=== PATIENT | female | born 1980 | race Caucasian/White ===

== ENCOUNTER 2016-06-02 15:01 | Inpatient (IN) | payer BC ==
--- NOTE | ~2016-06-02 | DS ---
Discharge Summary [place] [id number] [facility] [place]. [address] NAME: GEOFFREY FARRIS : 84 STATUS : DIS IN PAT#: [id number] AGE: 35 ADM/REG DATE : 06/02/16 MR#: [id number] REPORT SERV DATE: 06/06/16 DICTATED BY: DATE: REPORT STATUS : Draft TRANSCRIBED BY: MODL DATE: 06/05/16 ADMISSION DATE: 06/02/2016 DISCHARGE DATE: 06/05/2016 DISCHARGE DIAGNOSES: 1. Diverticulitis. 2. Leukocytosis. 3. Abdominal pain. 4. Constipation. 5. Focal seizures history. CONSULTATIONS: Rey Mitchell, LUZ ELENA, Gastroenterology. PERTINENT TESTS AND PROCEDURES: 1. CT of the abdomen and pelvis without contrast, 06/02/2016. Impression:. a. Mild diverticulosis of the sigmoid colon. Mid and distal sigmoid colon appeared thickened with surrounding inflammatory stranding and trace adjacent fluid concerning for diverticulitis/colitis. No evidence for abscess or perforation is evident. Recommend colonoscopy after therapy to entirely exclude other etiologies such as superimposed neoplasm. b. Punctate nonobstructing right nephrolith. c. Status post cholecystectomy and hysterectomy. 2. Blood cultures x2 sites obtained on 06/02/2016, preliminary result no growth at two days. CHIEF COMPLAINT UPON ADMISSION: Lower abdominal pain. HOSPITAL COURSE: Please refer to history and physical dated 06/03/[address] Manny Alegria for complete details of the patient's initial presentation upon admission and health history. Please also refer to consultation dated 06/03/2016, provided by Rey Mitchell, nurse-practitioner, with Gastroenterology for details pertaining to evaluation and management of abdominal pain and diverticulitis versus colitis evidence per CT scan. Briefly, the patient is a 35-year-old female, who presented to the emergency department on 06/02/2016 with complaints of lower abdominal pain. Prior to this admission the patient was pending followup appointment with Dr. Sanderson, GI, for evaluation of abdominal pain to include an endoscopy. Upon initial evaluation, a CT scan showed diverticulitis and colitis in the sigmoid colon with a 14,000 white count. The patient was admitted for further evaluation and treatment. Upon admission, the patient was started on Zosyn and responded well to this therapy. Abdominal pain has improved, and white count has normalized. The patient will follow up with GI on an outpatient basis. Discharge Summary [place] [id number] [facility] [place]. [address] NAME: GEOFFREY FARRIS : 82 STATUS : DIS IN PAT#: [id number] AGE: 35 ADM/REG DATE : 06/02/16 MR#: [id number] REPORT SERV DATE: 06/06/16 DICTATED BY: DATE: REPORT STATUS : Draft TRANSCRIBED BY: MODL DATE: 06/05/16 1. Diverticulitis. This was confirmed per CT scan. The patient received four days of Zosyn during this admission and will continue antibiotic therapy to include Augmentin 875/125 mg p.o. q.12 hours x10 days to complete a total 14-day therapy. The patient will follow up with Dr. Sanderson GI, in approximately eight weeks for an EGD/colonoscopy. Since admission, the patient's nausea has been well controlled with Zofran with no reports of vomiting. The patient's diet has been successfully upgraded to soft, and the patient is tolerating without difficulty. 2. Leukocytosis, this was secondary to diverticulitis. Upon admission the patient's white blood count was reported to be 14,000. On the day of discharge, white count had normalized and was reported to be 8700. The patient will continue 10 more days of antibiotics to complete a total 14-day therapy. 3. Abdominal pain. The patient's abdominal pain was primarily located in the lower quadrants, left greater than right. Pain responded well to Percocet as needed. Since being on antibiotic therapy the patient's pain continues to improve daily. Pain has not completely resolved, but had decreased to 3 to 4/10 at rest and 6 to 7/10 with movement. The patient will continue short course of the home pain medication as needed. 4. Constipation. The patient has a history of intermittent constipation. She will continue bowel regimen initiated during this hospitalization to include Metamucil and MiraLAX daily. 5. History of focal seizures, this is secondary to brain surgery to remove cyst. The patient's home medications were continued and the patient had no seizure-like events during this admission. DISCHARGE CONDITION: At the time of discharge, the patient was hemodynamically stable. DISCHARGE DIET: Soft diet to be advanced as tolerated. DISCHARGE MEDICATIONS: 1. Adderall 20 mg tablet p.o. twice daily. 2. Lamictal 200 mg tablet p.o. daily at bedtime. 3. Nexium 40 mg tablet p.o. twice daily. 4. MiraLAX 17 g p.o. daily, hold for diarrhea. 5. Metamucil one packet p.o. daily. 6. Florastor one tablet p.o. twice daily. 7. Trazodone 150 mg tablet p.o. daily at bedtime. 8. Zofran 4 mg tablet p.o. every 4 hours as needed for nausea. 9. Percocet 5/325 mg tablet one tablet p.o. every 6 hours as needed for [id number] pain. Hold for sedation. 10.Augmentin 875/125 mg tablet p.o. every 12 hours x10 days. DISCHARGE INSTRUCTIONS: Follow up with Dr. Sanderson GI, in eight weeks for EGD and colonoscopy. Order was faxed to GI office prior to discharge. The patient and her spouse were educated to return to the emergency department for any acute onset of fever 100.4 degrees Fahrenheit or higher lasting more than one hour, intractable chills, nausea, vomiting, abdominal pain, bright red blood per rectum or any other Discharge Summary [address] [address] NAME: GEOFFREY FARRIS : 84 STATUS : DIS IN PAT#: [id number] AGE: 35 ADM/REG DATE : 06/02/16 MR#: [id number] REPORT SERV DATE: 06/06/16 DICTATED BY: DATE: REPORT STATUS : Draft TRANSCRIBED BY: MONICA DATE: 06/05/16 deviations from the patient's baseline health status at the time of this discharge. PRIMARY HOT SAW OPERATOR: Clarence Sanderson M.D. PRIMARY CARE PHYSICIAN: Jf Xavier M.D. [facility] Jenny Sanchez NP-Autumn / [id number] CC: MD Jf Tanner II, M.D.
--- NOTE | ~2016-06-02 | CN ---
Consultation Report [facility] [address] [place]. [address] NAME: GEOFFREY FARRIS : 84 STATUS : ADM Shelli PAT#: [id number] AGE: 35 ADM/REG DATE : 06/02/16 MR#: [id number] REPORT SERV DATE: 06/03/16 DICTATED BY: TAD HDEZ DATE: 06/03/16 REPORT STATUS : Draft TRANSCRIBED BY: MODL DATE: 06/03/16 GI CONSULTATION DATE OF CONSULTATION: 06/03/2016 REASON FOR CONSULTATION: Evaluation and management of abdominal pain, diverticulitis versus colitis on CT scan. HISTORY OF PRESENT ILLNESS: Ms Farris is a very pleasant 35-year-old female patient known to Dr. Zaire Sanderson in the outpatient setting, who presented to [facility] with a chief complaint of lower abdominal pain. The patient gives history of symptom onset beginning over the last three days. She was seen in our office on 05/28/2016 by nurse practitioner, Thais Owen for GERD and nausea. She was started on a regimen of Carafate. She had called the office yesterday indicating that she had increased lower abdominal pain and lack of bowel movements. She had taken a bottle of magnesium citrate which she states cleaned her out. She did not see any blood. She saw a little bit of mucus at the end of her stooling secondary to continued abdominal discomfort as well as chilling. She came into the hospital for further evaluation. Noncontrasted CT scan was obtained showing mild sigmoid colon, diverticulosis, as well as mid to distal sigmoid colon thickening with surrounding inflammatory stranding and trace adjacent fluid consistent with diverticulitis versus colitis. No abscess or perforation was seen. She had an elevated white blood cell count on admission of 14.9, temperature max here has been 99.1. Today, she states she is really not feeling much better. She had been started on Zosyn. No followup labs have been obtained yet. She has not had any further bowel movements. She has had not had any nausea or vomiting. She presently is tolerating a full liquid diet. She was to have an EGD with Dr. Sanderson on 06/12/2016; however, we will plan on cancelling that per her request as she will need a followup colonoscopy in roughly six to eight weeks, and do both procedures at the same time. I did discuss with her presently, we will continue her IV antibiotics, advance her diet as tolerated, and recommend the outpatient followup colonoscopy. She is agreeable. PAST MEDICAL HISTORY: Positive for GERD, brain cyst status post surgical removal. PAST SURGICAL HISTORY: Include tonsils, adenoidectomy, left temporal lobe cyst removal, cholecystectomy, and partial hysterectomy. ALLERGIES: DEMEROL, FLAGYL, PERTUSSIS VACCINES, AND HYDROCODONE. MEDICATIONS: Adderall, Nexium, Lamictal, and trazodone. SOCIAL HISTORY: Denies alcohol, tobacco, or illicits. FAMILY HISTORY: Positive for diverticulitis in her father, who has had surgical resection. Consultation Report [facility] [address] [place]. [address] NAME: GEOFFREY FARRIS : 84 STATUS : ADM Shelli PAT#: [id number] AGE: 35 ADM/REG DATE : 06/02/16 MR#: [id number] REPORT SERV DATE: 06/03/16 DICTATED BY: TAD HDEZ DATE: 06/03/16 REPORT STATUS : Draft TRANSCRIBED BY: MONICA DATE: 06/03/16 REVIEW OF SYSTEMS: A 10-point review of systems was obtained, pertinent positives are addressed in the history of present illness. PHYSICAL EXAMINATION: VITAL SIGNS: Temperature 98.4, pulse 87, respirations 16, and blood pressure 107/65. NEUROLOGIC: Reveals an alert, obese female, resting in bed. No focal deficits. GENERAL: Cooperative, in no apparent distress. Awake, alert and oriented x3. HEAD, EARS, EYES, NOSE, AND THROAT: Anicteric. Pupils are equal, round, and reactive to light and accommodation. Normocephalic and atraumatic. NECK: No JVD. No palpable nodes. LUNGS: Clear anteriorly. Diminished bilaterally in the bases. Normal respiratory effort exhibited. Equal expansion. CARDIOVASCULAR SYSTEM: Regular rate and rhythm. ABDOMEN: Soft, obese, tender to palpation to the lower abdomen. No rebound, guarding, or organomegaly appreciated on exam. Hypoactive bowel sounds. EXTREMITIES: No edema. Normal distal pulses. SKIN: Warm, dry, and intact. PERTINENT LABORATORY DATA: Sodium 137, potassium 3.8, BUN is 8, and creatinine 0.65. White count 14.9, hemoglobin 13.8, hematocrit 40.4, and platelet count 252. ASSESSMENT: 1. Abdominal pain. 2. Diverticulitis versus colitis on CT scan. 3. Gastroesophageal reflux disease. 4. Leukocytosis. 5. Recent constipation. PLAN: 1. Continue antibiotic therapy. 2. Advance diet as tolerated. 3. We will cancel EGD for next Wednesday and reschedule for six to eight weeks with colonoscopy. We will add Florastor and low-dose Bentyl. We will follow. RIKY/MONICA Tad LUZ ELENA Mitchell / [id number] CC: Consultation Report [address] [place] [facility] [address] NAME: GEOFFREY FARRIS : 84 STATUS : ADM Shelli PAT#: [id number] AGE: 35 ADM/REG DATE : 06/02/16 MR#: [id number] REPORT SERV DATE: 06/03/16 DICTATED BY: TAD HDEZ DATE: 06/03/16 REPORT STATUS : Draft TRANSCRIBED BY: MONICA DATE: 06/03/16 MD Jf Tanner II, M.D.
--- NOTE | ~2016-06-02 | HP ---
History And Physical [place] [address] [facility] [place]. [address] NAME: GEOFFREY FARRIS : 84 STATUS : ADM Shelli PAT#: [id number] AGE: 35 ADM/REG DATE : 06/02/16 MR#: [id number] REPORT SERV DATE: 06/03/16 DICTATED BY: JOYCE STACK DATE: 06/02/16 REPORT STATUS : Draft TRANSCRIBED BY: MODL DATE: 06/02/16 DATE OF ADMISSION: 06/02/2016 CHIEF COMPLAINT: Lower abdominal pain. HISTORY OF PRESENT ILLNESS: The patient is a 35-year-old female. She is currently following Dr. Sanderson for abdominal pain as an endoscopy pending in approximately a week. She was getting treatment for mid epigastric pain over the past three days. She just started developing a new pain, which was lower abdomen. She describes this as fairly constant, fairly severe, increasing in severity over the past several days, radiating to both left and right side equally. No other associated symptoms such as nausea, vomiting, fever or dysuria. When her symptoms persisted, she came to the emergency department. CT scan did show diverticulitis and colitis in the sigmoid colon and a 14,000 white count. The patient has been given antibiotics and pain medicines and is feeling somewhat better. She has elected to stay for further treatment and evaluation and consultation with Dr. Sanderson. She states she has had no recent exposure to ill people that she is aware of. She has an alternative routine in her diet. No recent travel history. No other associated symptoms other than one episode of diarrhea, which she feels is due to mag citrate that she took for constipation. She described the stool is normal. No previous history of colitis or abdominal problems. PAST MEDICAL HISTORY: She has a remote history of brain surgery for a cyst, she takes Adderall. PAST SURGICAL HISTORY: She had tonsils and adenoids. She had cyst, left temporal lobe, in 1997. She had a cholecystectomy in 2000. She had a partial hysterectomy in 2007. CURRENT MEDICATIONS: Adderall 20 mg b.i.d., Nexium 40 b.i.d., Lamictal 200, trazodone 150. ALLERGIES: DEMEROL CAUSES HER TO BE HYPERACTIVE. FLAGYL CAUSES HER THROAT TO SWELL, PERTUSSIS, SWELLING, FEVER, AND RASH. HYDROCODONE, NAUSEA AND VOMITING. FAMILY HISTORY: Her father has had recurrent bouts of diverticulitis and underwent surgical correction. There is "cancer" in his side of the family. Mother has diabetes and hypertension and they run in her side of the family. SOCIAL HISTORY: Nondrinker, nonsmoker. REVIEW OF SYSTEMS: HEENT: No complaints. CARDIOVASCULAR: No chest pain or palpitations. PULMONARY: No cough or shortness of breath. GI: As covered in HPI. : She denies dysuria, frequency, or urgency. NEUROMUSCULOSKELETAL: As covered in HPI. History And Physical [address] [address] NAME: GEOFFREY FARRIS : 84 STATUS : ADM Shelli PAT#: [id number] AGE: 35 ADM/REG DATE : 06/02/16 MR#: [id number] REPORT SERV DATE: 06/03/16 DICTATED BY: JOYCE STACK DATE: 06/02/16 REPORT STATUS : Draft TRANSCRIBED BY: MODL DATE: 06/02/16 Otherwise, 14-point review of systems is negative. PHYSICAL EXAMINATION: VITAL SIGNS: On presentation, BP 133/81, temperature 98.4 pulse 94, respirations 14, sat 98%. GENERAL: She is awake, alert, pleasant, cooperative, in no acute distress. HEENT: Normocephalic, atraumatic. Sclerae are nonicteric. NECK: Supple. HEART: Regular rate and rhythm without significant murmurs, gallops, or rubs. LUNGS: Clear to auscultation without rhonchi, rales, or wheezes. ABDOMEN: She has positive bowel sounds. No guarding or rebound. She tolerates fairly moderate palpation to the lower abdomen. EXTREMITIES: No clubbing, cyanosis, or edema. NEUROLOGIC: Nonfocal. LABORATORY DATA: CBC: White count 14.9, hemoglobin and hematocrit are 13.8 and 40.4, platelets 252. Lipase 96. AST and ALT are 12 and 21. Total bilirubin 0.6. UA shows trace LE, rare bacteria. Blood cultures are pending. Sodium 137, potassium 3.8, chloride 101, CO2 of 26, BUN and creatinine are 8 and 0.65 with a glucose of 94. IMAGING: CT scan showed thickening and inflammation to the [id number] sigmoid colon. Differential being diverticulitis or colitis. No abscess, perforation, lymphadenopathy, or free fluid were noted. ASSESSMENT: Colitis with leukocytosis. PLAN: The patient is being admitted. We will continue antibiotics. We will continue pain medications. We will consult Dr. Sanderson. Serial labs. TLF/MODL Joyce Stack M.D. / [id number] CC: MD Jf Tanner II, M.D.
[2016-06-02 13:43] LABS: BASOPHILS 0.1 %; BASOPHILS ABSOLUTE 0.02 10/3/uL (0.0-0.16); EOSINOPHILS 0.4 %; EOSINOPHILS ABSOLUTE 0.06 10/3/uL (0.0-0.53); ER CBC TAT 0 Hrs 03 Mins; HEMATOCRIT 40.4 % (36.0-48.0); HEMOGLOBIN 13.8 g/dL (12.0-16.0); IMMATURE GRANULOCYTES 0.2 %; IMMATURE GRANULOCYTES ABSOLUTE 0.03 10/3/uL (0.0-0.11); LYMPHOCYTES 14.3 %; LYMPHOCYTES ABSOLUTE 2.14 10/3/uL (0.67-4.30); MANUAL DIFF NO %; MEAN CORPUS HGB CONC 34.2 g/dL (32.0-36.0); MEAN CORPUSCULAR HEMOGLOB 28.8 pg (26.0-34.0); MEAN CORPUSCULAR VOLUME 84.3 fL (80-100); MEAN PLATELET VOLUME 10.3 fL (9.2-13.0); MONOCYTES 8.3 %; MONOCYTES ABSOLUTE 1.24 10/3/uL (0.21-1.20); NEUTROPHILS 76.7 %; NEUTROPHILS ABSOLUTE 11.44 10/3/uL (2.02-8.40); PLATELET COUNT 252 10/3/uL (150-400); RBC DISTRIBUTION WIDTH 12.8 % (12.0-16.0); RED CELL COUNT 4.79 10/6/uL (4.0-5.6); WHITE BLOOD CELLS 14.9 10/3/uL (4.5-10.5)
[2016-06-02 13:59] LABS: A/G RATIO 0.8 (0.7-1.9); ALBUMIN 3.9 G/DL (3.5-5.0); ALKALINE PHOSPHATASE 100 U/L (45-117); CHLORIDE, SERUM 101 MMOL/L (96-112); CREATININE 0.65 MG/DL (0.55-1.02); GFR AFRICAN AMERICAN 135 ML/MIN (>=60); GFR NON AFRICAN AMERICAN 117 ML/MIN (>=60); GLOBULIN 4.7 G/DL (2.5-4.1); GLUCOSE, SERUM 94 MG/DL (60-99); POTASSIUM, SERUM 3.8 MMOL/L (3.5-5.3); SGOT(AST) 12 U/L (5-40); SGPT(ALT) 21 U/L (5-65); SODIUM, SERUM 137 MMOL/L (135-148); TOTAL BILIRUBIN 0.6 MG/DL (0-1.2); TOTAL PROTEIN 8.6 G/DL (6.0-8.5)
[2016-06-02 14:04] LABS: BUN (BLOOD UREA NITROGEN) 8 MG/DL (6-23); CO2 (CARBON DIOXIDE) 26 MMOL/L (24-34)
[2016-06-02 14:36] LABS: ASCORBIC ACID (UR NOT ORDER) NEG (NEG); BILIRUBIN, URINE NEGATIVE (NEG); ER URINALYSIS TAT 0 Hrs 07 Mins; KETONE, URINE NEGATIVE (NEG); LEUKOCYTE ESTERASE(NOT OR TRACE (NEG); NITRITE (URINE) NEG (NEG); WBC (NOT ORDERED) (RFLEX) 1 (0-5)
[~2016-06-02 15:01] MED LIST: ADDERALL20 MG PO; LAMICTAL200 MG PO; PRILOSEC40 MG PO; TRAZODONE150 MG PO
[2016-06-02] MEDS ORDERED: NEXIUM40 PO (16:58)
[2016-06-03 07:43] LABS: BASOPHILS 0.1 %; BASOPHILS ABSOLUTE 0.01 10/3/uL (0.0-0.16); EOSINOPHILS 0.5 %; EOSINOPHILS ABSOLUTE 0.06 10/3/uL (0.0-0.53); HEMATOCRIT 37.1 % (36.0-48.0); HEMOGLOBIN 12.4 g/dL (12.0-16.0); IMMATURE GRANULOCYTES 0.3 %; IMMATURE GRANULOCYTES ABSOLUTE 0.03 10/3/uL (0.0-0.11); LYMPHOCYTES 19.9 %; LYMPHOCYTES ABSOLUTE 2.37 10/3/uL (0.67-4.30); MEAN CORPUS HGB CONC 33.4 g/dL (32.0-36.0); MEAN CORPUSCULAR HEMOGLOB 28.8 pg (26.0-34.0); MEAN CORPUSCULAR VOLUME 86.1 fL (80-100); MEAN PLATELET VOLUME 10.5 fL (9.2-13.0); MONOCYTES 9.8 %; MONOCYTES ABSOLUTE 1.16 10/3/uL (0.21-1.20); NEUTROPHILS 69.4 %; NEUTROPHILS ABSOLUTE 8.26 10/3/uL (2.02-8.40); PLATELET COUNT 198 10/3/uL (150-400); RBC DISTRIBUTION WIDTH 13.1 % (12.0-16.0); RED CELL COUNT 4.31 10/6/uL (4.0-5.6); WHITE BLOOD CELLS 11.9 10/3/uL (4.5-10.5)
[2016-06-03 07:45] LABS: MANUAL DIFF NO %
[2016-06-04 06:28] LABS: BASOPHILS 0.1 %; BASOPHILS ABSOLUTE 0.01 10/3/uL (0.0-0.16); EOSINOPHILS 1.9 %; EOSINOPHILS ABSOLUTE 0.16 10/3/uL (0.0-0.53); HEMATOCRIT 34.5 % (36.0-48.0); HEMOGLOBIN 11.3 g/dL (12.0-16.0); IMMATURE GRANULOCYTES 0.1 %; IMMATURE GRANULOCYTES ABSOLUTE 0.01 10/3/uL (0.0-0.11); LYMPHOCYTES ABSOLUTE 2.73 10/3/uL (0.67-4.30); MEAN CORPUS HGB CONC 32.8 g/dL (32.0-36.0); MEAN CORPUSCULAR HEMOGLOB 28.6 pg (26.0-34.0); MEAN CORPUSCULAR VOLUME 87.3 fL (80-100); MEAN PLATELET VOLUME 10.8 fL (9.2-13.0); MONOCYTES 9.9 %; MONOCYTES ABSOLUTE 0.82 10/3/uL (0.21-1.20); NEUTROPHILS ABSOLUTE 4.54 10/3/uL (2.02-8.40); PLATELET COUNT 220 10/3/uL (150-400); RBC DISTRIBUTION WIDTH 12.9 % (12.0-16.0); RED CELL COUNT 3.95 10/6/uL (4.0-5.6); WHITE BLOOD CELLS 8.3 10/3/uL (4.5-10.5)
[2016-06-04 06:41] LABS: BUN (BLOOD UREA NITROGEN) 5 MG/DL (6-23); CALCIUM, SERUM 8.5 MG/DL (8.5-10.4); CHLORIDE, SERUM 104 MMOL/L (96-112); CO2 (CARBON DIOXIDE) 29 MMOL/L (24-34); CREATININE 0.63 MG/DL (0.55-1.02); GFR AFRICAN AMERICAN 137 ML/MIN (>=60); GFR NON AFRICAN AMERICAN 118 ML/MIN (>=60); GLUCOSE, SERUM 83 MG/DL (60-99); SODIUM, SERUM 141 MMOL/L (135-148)
[2016-06-04 06:42] LABS: MANUAL DIFF NO %
[2016-06-05 04:52] LABS: BASOPHILS 0.2 %; BASOPHILS ABSOLUTE 0.02 10/3/uL (0.0-0.16); EOSINOPHILS 2.9 %; EOSINOPHILS ABSOLUTE 0.25 10/3/uL (0.0-0.53); HEMATOCRIT 35.8 % (36.0-48.0); HEMOGLOBIN 11.6 g/dL (12.0-16.0); IMMATURE GRANULOCYTES 0.1 %; IMMATURE GRANULOCYTES ABSOLUTE 0.01 10/3/uL (0.0-0.11); LYMPHOCYTES 36.1 %; LYMPHOCYTES ABSOLUTE 3.13 10/3/uL (0.67-4.30); MEAN CORPUS HGB CONC 32.4 g/dL (32.0-36.0); MEAN CORPUSCULAR HEMOGLOB 28.5 pg (26.0-34.0); MEAN PLATELET VOLUME 10.4 fL (9.2-13.0); MONOCYTES ABSOLUTE 0.78 10/3/uL (0.21-1.20); NEUTROPHILS 51.7 %; NEUTROPHILS ABSOLUTE 4.48 10/3/uL (2.02-8.40); PLATELET COUNT 226 10/3/uL (150-400); RBC DISTRIBUTION WIDTH 12.6 % (12.0-16.0); RED CELL COUNT 4.07 10/6/uL (4.0-5.6); WHITE BLOOD CELLS 8.7 10/3/uL (4.5-10.5)
[2016-06-05 05:01] LABS: MANUAL DIFF NO %
[2016-06-05] MEDS ORDERED: MIRALAX POWDER1 PKT PO (13:25)
[2016-06-05] MEDS ORDERED: FLORASTOR250 MG PO (13:26)
[2016-06-05] MEDS ORDERED: METPAKSF PO (13:26)
[2016-06-05] MEDS ORDERED: ZOFRAN ODT4 MG PO (13:28)
[2016-06-05] MEDS ORDERED: PCET PO (13:29)
[2016-06-05] MEDS ORDERED: AUG875 PO (13:30)
== END 2016-06-05 14:28 | disposition home or self-care (01) | DRG 392 ==
LOC: ER 15:01 → 4EA 19:13
PROVIDERS: Emergency Medicine; Internal Medicine; Nurse Practitioner Family
DX: K57.92 Diverticulitis of intestine, part unspecified, without perforation or abscess without bleeding (principal); Z68.41 Body mass index [BMI] 40.0-44.9, adult; K21.9 Gastro-esophageal reflux disease without esophagitis; D72.829 Elevated white blood cell count, unspecified; Z90.710 Acquired absence of both cervix and uterus; Z98.890 Other specified postprocedural states; E66.9 Obesity, unspecified
CPT/HCPCS: 74176; 80048; 80053; 81001; 83690; 85025; 87040; 96374; 99285; A9270-GY; J2405; J2543; J2765

== ENCOUNTER 2016-06-12 15:54 | Observation (INO) | payer BC ==
--- NOTE | ~2016-06-12 | DS ---
Discharge Summary [place] [address] [place]. [address] NAME: GEOFFREY FARRIS : 84 STATUS : DIS Shelli PAT#: [id number] AGE: 35 ADM/REG DATE : 06/12/16 MR#: [id number] REPORT SERV DATE: 06/15/16 DICTATED BY: PETEY CAMEJO DATE: 06/14/16 REPORT STATUS : Draft TRANSCRIBED BY: MODL DATE: 06/14/16 ADMISSION DATE: 06/12/2016 DISCHARGE DATE: 06/14/2016 DISCHARGE DIAGNOSES: 1. Abdominal pain. 2. Recent diverticulitis. 3. Morbid obesity. 4. History of constipation. 5. History of focal seizures. DISCHARGE MEDICATIONS: Are as follows; Lamictal 200 mg at bedtime, Nexium 40 mg twice a day, MiraLAX one packet daily, Metamucil 1 packet daily, trazodone 150 mg at bedtime, Adderall 20 mg twice a day p.r.n., Zofran 4 mg every four hours p.r.n., Percocet 5/325 every six hours p.r.n., Cipro 500 mg twice a day for 10 days. HISTORY OF PRESENT ILLNESS: A 35-year-old white female, who presented with abdominal pain. Please see initial H and P of Dr. Grayson Orellana. This patient is admitted to Hospitalist Service for further evaluation and treatment. CONSULTANTS DURING THIS ADMISSION: Include Armando Ibrahim and Rey Perez, nurse practitioner. PROCEDURES AND IMAGING DURING THIS ADMISSION: Include a CT of the abdomen and pelvis that showed no acute abnormality of the abdomen or pelvis. No evidence for acute diverticulitis status post cholecystectomy and hysterectomy. Occult bloods were negative. HOSPITAL COURSE: The patient was seen by GI who initially was going to initiate both Cipro and Flagyl. However, the patient contributed she had an allergy to Flagyl so this was changed to Levaquin before hospitalized. She underwent the above-described CT scan for her symptoms improved in regard to her abdominal pain it decreased. She was given some Levsin as well and her diet was able to be advanced which she tolerated into the morning of 06/14/2016. After discussion with Dr. Ibrahim, it is felt safe for her to discharge home to follow up with Dr. Sanderson for outpatient scheduled endoscopy procedures both upper endoscopy and colonoscopy and to finish up her Cipro course for 10 days 500 mg twice a day. The patient was in agreement with this plan going forward and questions were answered at bedside. PRIMARY CARE PHYSICIAN: Dr. Jf Xavier. [facility] [place] Petey Camejo NP Discharge Summary [address] [address] NAME: GEOFFREY FARRIS : 84 STATUS : DIS Shelli PAT#: [id number] AGE: 35 ADM/REG DATE : 06/12/16 MR#: [id number] REPORT SERV DATE: 06/15/16 DICTATED BY: PETEY CAMEJO DATE: 06/14/16 REPORT STATUS : Draft TRANSCRIBED BY: MONICA DATE: 06/14/16 / [id number] CC: MD Jf Hoang M.D.
--- NOTE | ~2016-06-12 | CN ---
Consultation Report [facility] [address] [place]. [address] NAME: GEOFFREY FARRIS : 84 STATUS : ADM Shelli PAT#: [id number] AGE: 35 ADM/REG DATE : 06/12/16 MR#: [id number] REPORT SERV DATE: 06/13/16 DICTATED BY: TAD HDEZ DATE: 06/13/16 REPORT STATUS : Draft TRANSCRIBED BY: MODL DATE: 06/13/16 GI CONSULTATION DATE OF CONSULTATION: 06/13/2016 35-year-old female patient admitted on 06/12/2016. REASON FOR CONSULTATION: Evaluation and management of abdominal pain, history of recent diverticulitis. HISTORY OF PRESENT ILLNESS: Ms. Farris is a very pleasant 35-year-old female patient, who is known to Dr. Zaire Sanderson in the outpatient setting. She presented to [facility] on the 06/12/2016, with a chief complaint of continued lower abdominal pain. The patient has a recent history of being inpatient at [facility] 06/03/2016, discharge date 06/05/2016, for acute diverticulitis/colitis. She had recently been seen by nurse practitioner, Thais Owen, in the office for GERD, nausea, and was to have an EGD on the ; however, she had some constipation, increasing abdominal discomfort in the lower abdomen, and was directed to the emergency room for further evaluation. She did have a CT scan done 06/02/2016. While in the emergency room, there was a noncontrast exam that showed mild diverticulosis of the sigmoid colon. The mid and distal sigmoid colon appeared to be thickened with surrounding inflammatory stranding and trace adjacent fluid. This was concerning for diverticulitis and colitis. No abscess or perforation was seen. She was started on antibiotics and was discharged on Augmentin. She states that after she got home, she continued to have episodes of intermittent sharp stabbing pains in the right as well as a left lower quadrant. She states she was having normal bowel movements without blood. She had no nausea and she was tolerating a diet but secondary to her continuance of pain, she came back to the emergency room for further evaluation. CT scan was repeated which was negative. It showed scattered colonic diverticula without evidence of pericolonic inflammation, inflammatory stranding to suggest diverticulitis. Her white count was normal at 9.3. She has been afebrile. She is still having some discomfort; however, I have discussed with her that we will advance her diet, begin Levaquin and Flagyl, if she is doing well in the morning, we will discharge her. She does already have a followup colonoscopy set up with Dr. Sanderson to be done in July as well as EGD. PAST MEDICAL HISTORY: Positive for recent diverticulitis, GERD, and brain cyst, status post surgical removal. SURGICAL HISTORY: Tonsils and adenoidectomy, left temporal lobe cyst removal, cholecystectomy, and partial hysterectomy. ALLERGIES: ARE TO DEMEROL, FLAGYL, PERTUSSIS VACCINES, AND HYDROCODONE. HOME MEDICATIONS: Adderall; Nexium; Lamictal; trazodone; Augmentin; Zofran; Percocet; MiraLAX; and Metamucil. Consultation Report [place] [id number] [facility] [place]. [address] NAME: GEOFFREY FARRIS : 84 STATUS : ADM Shelli PAT#: [id number] AGE: 35 ADM/REG DATE : 06/12/16 MR#: [id number] REPORT SERV DATE: 06/13/16 DICTATED BY: TAD HDEZ DATE: 06/13/16 REPORT STATUS : Draft TRANSCRIBED BY: MONICA DATE: 06/13/16 FAMILY HISTORY: Positive for diverticulitis in her father who had surgical resection secondary to. REVIEW OF SYSTEMS: A 10-point review of systems has been obtained with pertinent positives being addressed in the history of present illness. PHYSICAL EXAMINATION: VITAL SIGNS: Temperature is 97.6, pulse 77, respirations 18, and blood pressure 114/55. NEUROLOGIC: Reveals an alert, obese female, resting in bed with no focal deficits being noted. GENERAL: She is cooperative. She is in no apparent distress. She is awake, alert, and oriented x3. HEAD, EARS, EYES, NOSE, AND THROAT: Anicteric. Pupils equal, round, and reactive to light and accommodation. Normocephalic and atraumatic. NECK: No JVD. No palpable nodes. Supple. LUNGS: Clear anteriorly with normal respiratory effort exhibited. Equal expansion. CARDIOVASCULAR SYSTEM: Regular rate and rhythm. ABDOMEN: Soft and obese. No tenderness to palpation elicited on exam. No rebound or guarding or organomegaly assessed. Active bowel sounds. EXTREMITIES: No edema. Normal distal pulses. SKIN: Warm, dry, and intact. PERTINENT LABORATORY DATA: Sodium 141, potassium is 3.7, BUN is 7, and creatinine 0.64. White count 9.6, hemoglobin 11.8, and hematocrit 35.9. ASSESSMENT: 1. Abdominal pain. 2. Recent diverticulitis, treated with Augmentin. 3. History of reflux. 4. Constipation issues on MiraLAX and Metamucil. PLAN: 1. We will begin antibiotic regimen, noted Flagyl allergy, we will at least begin Cipro. 2. Advance diet as tolerated. 3. She will have her followup colonoscopy as already scheduled in July with Dr. Sanderson. RIKY/MONICA Tad LUZ ELENA Mitchell / [id number] Consultation Report [address] [address] NAME: GEOFFREY FARRIS : 84 STATUS : ADM Shelli PAT#: [id number] AGE: 35 ADM/REG DATE : 06/12/16 MR#: [id number] REPORT SERV DATE: 06/13/16 DICTATED BY: TAD HDEZ DATE: 06/13/16 REPORT STATUS : Draft TRANSCRIBED BY: MONICA DATE: 06/13/16 CC: MD Jf Hoang M.D.
--- NOTE | ~2016-06-12 | HP ---
History And Physical [address] [address] NAME: GEOFFREY FARRIS : [birth year] STATUS : ADM Shelli PAT#: [id number] AGE: 35 ADM/REG DATE : 06/12/16 MR#: [id number] REPORT SERV DATE: 06/13/16 DICTATED BY: WALI MATT DATE: 06/12/16 REPORT STATUS : Draft TRANSCRIBED BY: [employer]L DATE: 06/12/16 DATE OF ADMISSION: 06/12/2016 CHIEF COMPLAINT: Continued abdominal pain. HISTORY OF PRESENT ILLNESS: The patient is a 35-year-old female with past medical history of diverticulitis and colitis with recent hospitalization, discharge approximately a week. Has been on Augmentin therapy, but was told to come back to emergency room if pain had not subsided. The patient has still continued having pain that has been generalized and abdomen over the last week, constant, mild to moderate, sharp in the lower abdominal wall without radiating. No nausea or vomiting. Has been able to tolerate p.o. No blood in stools. No fever, chills, or shortness of breath. Symptoms are worsened with bowel movements, relieved by pain medication. Symptoms are still currently present. Pain is reproducible on palpation. Of note, the patient does have a family history of diverticulitis with father requiring partial colon resection and has had colonoscopy in [address] Sanderson. REVIEW OF SYSTEMS: A 10-point review of systems negative except for that noted in the HPI. PAST MEDICAL HISTORY: Diverticulitis and focal seizure history. 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 CURRENT MEDICATIONS: Augmentin, Adderall, Nexium, Lamictal, Zofran, Percocet, MiraLAX, Metamucil, and trazodone. ALLERGIES: DEMEROL, FLAGYL, PERTUSSIS VACCINE, HYDROCODONE. FAMILY HISTORY: Diverticulitis with surgical correction, diabetes, and hypertension. SOCIAL HISTORY: Nonsmoker, nondrinker. No illicits. PHYSICAL EXAMINATION: VITAL SIGNS: The patient's blood pressure 144/77, temperature 97.6, pulse 80, respirations 16, O2 saturations 99% on room air. GENERAL: No acute distress. Calm, pleasant, ambulatory, well developed, well nourished. EYES: No scleral icterus. EOMI. ENT: Nares patent. Tongue midline. Moist mucous membranes. RESPIRATORY: Clear to auscultation. No wheezes or rales. CV: Regular rate. No rubs or gallops. GI: Tenderness to lower abdominal wall. Negative rebound. No fluid wave. : Deferred. MUSCULOSKELETAL: Moves all extremities x4. SKIN: Warm and dry. History And Physical [address] [facility]. [address] NAME: GEOFFREY FARRIS : [birth year] STATUS : ADM Shelli PAT#: [id number] AGE: 35 ADM/REG DATE : 06/12/16 MR#: [id number] REPORT SERV DATE: 06/13/16 DICTATED BY: WALI MATT DATE: 06/12/16 REPORT STATUS : Draft TRANSCRIBED BY: MONICA DATE: 06/12/16 LYMPH: No cervical or supraclavicular lymphadenopathy. HEME: No bleeding or bruising. NEURO: Alert and oriented. Moves all extremities x4. PSYCH: Appropriate mood and affect. LABORATORY DATA: test negative. Urinalysis within normal limits. CMP grossly within normal limits with a mildly elevated alkaline phosphatase of 120. Lipase within normal limits. CBC, also grossly within normal limits. Blood cultures from most recent discharge, negative. Virtual read CT still shows colitis. ASSESSMENT AND PLAN: 1. Abdominal pain. 2. Colitis. 3. Constipation. 4. Focal seizure history. PLAN: 1. For abdominal pain, persistent since discharge. Case was discussed with ED and Dr. Ibrahim for GI on-call tonight. Recommended IV antibiotic. Restart with IV Zosyn and IV pain medication control. The patient has been able to tolerate p.o. earlier today. We will place on clears. N.p.o. at midnight until seen by GI in a.m. We would like to wait until Radiology official read for comparison of old and new CT. Does have planned colonoscopy as an outpatient. 2. Colitis. Clears at this time. No SIRS symptoms and all these symptoms have resolved since last discharge. We will check lactate and monitor with symptom control. 3. Constipation. P.r.n.'s. 4. Focal seizure history. Seizure precautions. All questions answered with the patient and family at bedside. DDN/MONICA Wali Matt MD / [id number] CC: Antony Wu Jr, MD
[~2016-06-12 15:54] MED LIST changes: +AUG875 PO; +FLORASTOR250 MG PO; +METPAKSF PO; +MIRALAX POWDER1 PKT PO; +NEXIUM40 PO; +PCET PO; +ZOFRAN ODT4 MG PO
[2016-06-12 16:26] LABS: BASOPHILS 0.1 %; BASOPHILS ABSOLUTE 0.01 10/3/uL (0.0-0.16); EOSINOPHILS ABSOLUTE 0.09 10/3/uL (0.0-0.53); ER CBC TAT 0 Hrs 05 Mins; HEMATOCRIT 38.9 % (36.0-48.0); IMMATURE GRANULOCYTES 0.1 %; IMMATURE GRANULOCYTES ABSOLUTE 0.01 10/3/uL (0.0-0.11); LYMPHOCYTES 20.9 %; LYMPHOCYTES ABSOLUTE 1.95 10/3/uL (0.67-4.30); MEAN CORPUS HGB CONC 33.4 g/dL (32.0-36.0); MEAN CORPUSCULAR HEMOGLOB 28.4 pg (26.0-34.0); MEAN PLATELET VOLUME 10.4 fL (9.2-13.0); MONOCYTES 5.9 %; MONOCYTES ABSOLUTE 0.55 10/3/uL (0.21-1.20); NEUTROPHILS ABSOLUTE 6.73 10/3/uL (2.02-8.40); PLATELET COUNT 267 10/3/uL (150-400); RBC DISTRIBUTION WIDTH 12.9 % (12.0-16.0); RED CELL COUNT 4.58 10/6/uL (4.0-5.6); WHITE BLOOD CELLS 9.3 10/3/uL (4.5-10.5)
[2016-06-12 16:29] LABS: MANUAL DIFF NO %; MEAN CORPUSCULAR VOLUME 84.9 fL (80-100)
[2016-06-12 16:45] LABS: A/G RATIO 0.8 (0.7-1.9); ALBUMIN 3.7 G/DL (3.5-5.0); CHLORIDE, SERUM 102 MMOL/L (96-112); CO2 (CARBON DIOXIDE) 27 MMOL/L (24-34); CREATININE 0.62 MG/DL (0.55-1.02); GFR AFRICAN AMERICAN 137 ML/MIN (>=60); GFR NON AFRICAN AMERICAN 118 ML/MIN (>=60); GLOBULIN 4.6 G/DL (2.5-4.1); GLUCOSE, SERUM 90 MG/DL (60-99); POTASSIUM, SERUM 3.9 MMOL/L (3.5-5.3); SGOT(AST) 16 U/L (5-40); SGPT(ALT) 35 U/L (5-65); SODIUM, SERUM 140 MMOL/L (135-148); TOTAL BILIRUBIN 0.3 MG/DL (0-1.2); TOTAL PROTEIN 8.3 G/DL (6.0-8.5)
[2016-06-12 16:46] LABS: ALKALINE PHOSPHATASE 120 U/L (45-117); BUN (BLOOD UREA NITROGEN) 10 MG/DL (6-23)
[2016-06-12 17:31] LABS: ASCORBIC ACID (UR NOT ORDER) NEG (NEG); BILIRUBIN, URINE NEGATIVE (NEG); KETONE, URINE NEGATIVE (NEG); LEUKOCYTE ESTERASE(NOT OR NEG (NEG); NITRITE (URINE) NEG (NEG); WBC (NOT ORDERED) (RFLEX) < 1 (0-5)
[2016-06-12] MEDS ORDERED: ADDERALL20 MG PO (19:44)
[2016-06-12] MEDS ORDERED: NEXIUM40 PO (19:45)
[2016-06-12] MEDS ORDERED: ZOFRAN4 PO (19:45)
[2016-06-12] MEDS ORDERED: AUG875 PO (19:45)
[2016-06-12] MEDS ORDERED: PCET PO (19:46)
[2016-06-12] MEDS ORDERED: LAMICTAL200 MG PO (19:47)
[2016-06-12] MEDS ORDERED: MIRALAX POWDER1 PKT PO (19:47)
[2016-06-12] MEDS ORDERED: TRAZODONE150 MG PO (19:47)
[2016-06-12] MEDS ORDERED: METPAKSF PO (19:49)
[2016-06-13 04:25] LABS: BASOPHILS 0.1 %; BASOPHILS ABSOLUTE 0.01 10/3/uL (0.0-0.16); EOSINOPHILS 1.2 %; EOSINOPHILS ABSOLUTE 0.12 10/3/uL (0.0-0.53); HEMATOCRIT 35.9 % (36.0-48.0); HEMOGLOBIN 11.8 g/dL (12.0-16.0); IMMATURE GRANULOCYTES 0.2 %; IMMATURE GRANULOCYTES ABSOLUTE 0.02 10/3/uL (0.0-0.11); LYMPHOCYTES 29.3 %; LYMPHOCYTES ABSOLUTE 2.82 10/3/uL (0.67-4.30); MEAN CORPUS HGB CONC 32.9 g/dL (32.0-36.0); MEAN CORPUSCULAR HEMOGLOB 28.2 pg (26.0-34.0); MEAN CORPUSCULAR VOLUME 85.7 fL (80-100); MEAN PLATELET VOLUME 10.2 fL (9.2-13.0); MONOCYTES 8.5 %; MONOCYTES ABSOLUTE 0.82 10/3/uL (0.21-1.20); NEUTROPHILS 60.7 %; NEUTROPHILS ABSOLUTE 5.84 10/3/uL (2.02-8.40); PLATELET COUNT 239 10/3/uL (150-400); RBC DISTRIBUTION WIDTH 12.9 % (12.0-16.0); RED CELL COUNT 4.19 10/6/uL (4.0-5.6); WHITE BLOOD CELLS 9.6 10/3/uL (4.5-10.5)
[2016-06-13 04:26] LABS: MANUAL DIFF NO %
[2016-06-13 05:20] LABS: BUN (BLOOD UREA NITROGEN) 7 MG/DL (6-23); CALCIUM, SERUM 8.7 MG/DL (8.5-10.4); CHLORIDE, SERUM 103 MMOL/L (96-112); CO2 (CARBON DIOXIDE) 29 MMOL/L (24-34); CREATININE 0.64 MG/DL (0.55-1.02); GFR AFRICAN AMERICAN 136 ML/MIN (>=60); GFR NON AFRICAN AMERICAN 117 ML/MIN (>=60); GLUCOSE, SERUM 90 MG/DL (60-99); POTASSIUM, SERUM 3.7 MMOL/L (3.5-5.3); SODIUM, SERUM 141 MMOL/L (135-148)
[2016-06-14 04:38] LABS: BASOPHILS 0.1 %; BASOPHILS ABSOLUTE 0.01 10/3/uL (0.0-0.16); EOSINOPHILS 1.7 %; EOSINOPHILS ABSOLUTE 0.14 10/3/uL (0.0-0.53); HEMATOCRIT 33.4 % (36.0-48.0); HEMOGLOBIN 11.1 g/dL (12.0-16.0); IMMATURE GRANULOCYTES 0.1 %; IMMATURE GRANULOCYTES ABSOLUTE 0.01 10/3/uL (0.0-0.11); LYMPHOCYTES 33.1 %; LYMPHOCYTES ABSOLUTE 2.71 10/3/uL (0.67-4.30); MANUAL DIFF NO %; MEAN CORPUS HGB CONC 33.2 g/dL (32.0-36.0); MEAN CORPUSCULAR HEMOGLOB 28.7 pg (26.0-34.0); MEAN CORPUSCULAR VOLUME 86.3 fL (80-100); MEAN PLATELET VOLUME 10.7 fL (9.2-13.0); MONOCYTES 8.4 %; MONOCYTES ABSOLUTE 0.69 10/3/uL (0.21-1.20); NEUTROPHILS 56.6 %; NEUTROPHILS ABSOLUTE 4.63 10/3/uL (2.02-8.40); PLATELET COUNT 225 10/3/uL (150-400); RED CELL COUNT 3.87 10/6/uL (4.0-5.6); WHITE BLOOD CELLS 8.2 10/3/uL (4.5-10.5)
[2016-06-14 04:56] LABS: A/G RATIO 0.8 (0.7-1.9); ALKALINE PHOSPHATASE 122 U/L (45-117); BUN (BLOOD UREA NITROGEN) 9 MG/DL (6-23); CALCIUM, SERUM 8.6 MG/DL (8.5-10.4); CHLORIDE, SERUM 104 MMOL/L (96-112); CO2 (CARBON DIOXIDE) 31 MMOL/L (24-34); CREATININE 0.82 MG/DL (0.55-1.02); GFR AFRICAN AMERICAN 109 ML/MIN (>=60); GFR NON AFRICAN AMERICAN 94 ML/MIN (>=60); GLOBULIN 3.8 G/DL (2.5-4.1); GLUCOSE, SERUM 90 MG/DL (60-99); POTASSIUM, SERUM 4.2 MMOL/L (3.5-5.3); SGOT(AST) 28 U/L (5-40); SGPT(ALT) 50 U/L (5-65); SODIUM, SERUM 143 MMOL/L (135-148); TOTAL BILIRUBIN 0.2 MG/DL (0-1.2); TOTAL PROTEIN 6.7 G/DL (6.0-8.5)
[2016-06-14 05:04] LABS: ALBUMIN 2.9 G/DL (3.5-5.0)
[2016-06-14] MEDS ORDERED: LEVAQUIN750 MG PO (13:08)
[2016-06-14] MEDS ORDERED: CIP5 PO (13:10)
== END 2016-06-14 13:58 | disposition home or self-care (01) ==
LOC: ER 15:54 → CDU1 21:22
PROVIDERS: Hospitalist; Internal Medicine; Internal Medicine Gastroenterology; Nurse Practitioner
DX: R10.32 Left lower quadrant pain (principal); E66.01 Morbid (severe) obesity due to excess calories; K21.9 Gastro-esophageal reflux disease without esophagitis; Z86.69 Personal history of other diseases of the nervous system and sense organs; Z88.5 Allergy status to narcotic agent; Z88.6 Allergy status to analgesic agent; Z88.8 Allergy status to other drugs, medicaments and biological substances; Z87.19 Personal history of other diseases of the digestive system; Z90.49 Acquired absence of other specified parts of digestive tract; Z90.711 Acquired absence of uterus with remaining cervical stump; Z90.89 Acquired absence of other organs; Z98.890 Other specified postprocedural states
CPT/HCPCS: 74176; 80048; 80053; 81001; 82272; 83605; 83690; 83735; 84703; 85025; 96372; 96374; 96375; 96376; 99285; A9270-GY; G0378; J1170; J2405; J2543

== ENCOUNTER 2016-08-07 07:32 | Day surgery (SDC) | payer BC ==
--- NOTE | ~2016-08-07 | EGD ---
EGD REPORT [facility] [address] [address] NAME: GEOFFREY FARRIS : [birth year] STATUS : [place] [facility] [place] PAT#: [id number] AGE: 35 ADM/REG DATE : 08/07/16 MR#: [id number] REPORT SERV DATE: 08/07/16 DICTATED BY: LANCE ELDRIDGE DATE: 08/07/16 REPORT STATUS : Draft TRANSCRIBED BY: [employer] DATE: 08/07/16 Endoscopy Center Patient Name: Geoffrey Farris Date of : 1980 Attending MD: LANCE ELDRIDGE MD Procedure Date No Time: 08/07/2016 Procedure: Colonoscopy Indications: Follow-up of diverticulitis Referring MD: SUKHDEEP PHAN Medicines: Monitored Anesthesia Care Complications: No immediate complications. Procedure: Pre-Anesthesia Assessment: - ASA Grade Assessment: III - A patient with severe systemic disease. After I obtained informed consent, the scope was passed under direct vision. Throughout the procedure, the patient's blood pressure, pulse, and oxygen saturations were monitored continuously. The PCF [id number] was introduced through the anus and advanced to the cecum, identified by appendiceal orifice and ileocecal valve. The colonoscopy was performed without difficulty. The patient tolerated the procedure well. The quality of the bowel preparation was adequate. Findings: The digital rectal exam was normal. Pertinent negatives include no palpable rectal lesions. The terminal ileum appeared normal. Multiple diverticula were found in the sigmoid colon. Hemorrhoids were found during retroflexion and were mild. Impression: - The examined portion of the ileum was normal. - Diverticulosis in the sigmoid colon. - Hemorrhoids. Recommendation: - Patient has a contact number available for emergencies. The signs and symptoms of potential delayed complications were discussed with the patient. Return to normal activities tomorrow. Written discharge instructions were provided to the patient. - Regular diet. - Continue present medications. - Repeat colonoscopy at age 52 for screening purposes. - Return to GI clinic PRN. EGD REPORT [facility] [address] [place]. [address] NAME: GEOFFREY FARRIS : [birth year] STATUS : REG [facility]#: [id number] AGE: 35 ADM/REG DATE : 08/07/16 MR#: [id number] REPORT SERV DATE: 08/07/16 DICTATED BY: LANCE ELDRIDGE DATE: 08/07/16 REPORT STATUS : Draft TRANSCRIBED BY: [employer] DATE: 08/07/16 Procedure Code(s): --- Professional --- 77839, Colonoscopy, flexible, proximal to splenic flexure; diagnostic, with or without collection of specimen(s) by brushing or washing, with or without colon decompression (separate procedure) Diagnosis Code(s): --- Professional --- K64.9, Unspecified hemorrhoids K57.30, Diverticulosis of large intestine without perforation or abscess without bleeding K57.32, Diverticulitis of large intestine without perforation or abscess without bleeding CPT copyright 2013 [employer]. All rights reserved. The codes documented in this report are preliminary and upon patternator review may be revised to meet current compliance requirements. LANCE ELDRIDGE MD 08/07/2016 9:30 AM This report has been signed electronically. Number of Addenda: 0 Note Initiated On: 08/07/2016 8:48 AM Scope Withdrawal Time 0 hours 14 minutes 44 seconds [address] [place] [address]
--- NOTE | ~2016-08-07 | EGD ---
EGD REPORT [facility] [address] [address] NAME: GEOFFREY FARRIS : [birth year] [place]US : [place] [facility] [place] PAT#: [id number] AGE: 35 ADM/REG DATE : 08/07/16 MR#: [id number] REPORT SERV DATE: 08/07/16 DICTATED BY: LANCE ELDRIDGE DATE: 08/07/16 REPORT STATUS : Draft TRANSCRIBED BY: [facility] DATE: 08/07/16 Endoscopy Center Patient Name: Geoffrey Farris Date of : 1980 Attending MD: LANCE ELDRIDGE MD Procedure Date No Time: 08/07/2016 Procedure: Upper GI endoscopy Indications: Heartburn, Esophageal reflux Referring MD: SUKHDEEP PHAN Medicines: Monitored Anesthesia Care Complications: No immediate complications. Procedure: Pre-Anesthesia Assessment: - ASA Grade Assessment: III - A patient with severe systemic disease. After obtaining informed consent, the endoscope was passed under direct vision. Throughout the procedure, the patient's blood pressure, pulse, and oxygen saturations were monitored continuously. The GIF H190 [id number] was introduced through the mouth, and advanced to the second part of duodenum. The upper GI endoscopy was accomplished without difficulty. The patient tolerated the procedure fairly well. Findings: The examined esophagus was normal. Multiple 5 to 10 mm pedunculated and sessile polyps with no stigmata of recent bleeding were found in the gastric fundus and in the gastric body. Biopsies were taken with a cold forceps for histology. The cardia and gastric fundus were normal on retroflexion. The first part of the duodenum and 2nd part of the duodenum were normal. Impression: - Normal esophagus. - Multiple gastric polyps. Biopsied. - Normal first part of the duodenum and 2nd part of the duodenum. Recommendation: - Await pathology results. - Follow an antireflux regimen. Procedure Code(s): --- Professional --- 50512, Esophagogastroduodenoscopy, flexible, transoral; with biopsy, single or multiple Diagnosis Code(s): --- Professional --- K31.7, Polyp of stomach and duodenum EGD REPORT [facility] [address]. [address] NAME: GEOFFREY FARRIS : [birth year] STATUS : [place] [facility] [place] PAT#: [id number] AGE: 35 ADM/REG DATE : 08/07/16 MR#: [id number] REPORT SERV DATE: 08/07/16 DICTATED BY: LANCE ELDRIDGE DATE: 08/07/16 REPORT STATUS : Draft TRANSCRIBED BY: [employer] DATE: 08/07/16 R12, Heartburn K21.9, Gastro-esophageal reflux disease without esophagitis CPT copyright 2013 [employer]. All rights reserved. The codes documented in this report are preliminary and upon health information coder review may be revised to meet current compliance requirements. LANCE ELDRIDGE MD 08/07/2016 9:10 AM This report has been signed electronically. Number of Addenda: 0 Note Initiated On: 08/07/2016 8:52 AM Scope Withdrawal Time 0 hours 0 minutes 0 seconds [address] [address]
[~2016-08-07 07:32] MED LIST changes: +CIP5 PO; +LEVAQUIN750 MG PO; +ZOFRAN4 PO
== END 2016-08-07 23:59 | disposition home or self-care (01) ==
LOC: DMU 07:32
PROVIDERS: Internal Medicine Gastroenterology
PROC: 0DB68ZX Excision of Stomach, Via Natural or Artificial Opening Endoscopic, Diagnostic (ICD-10-PCS; principal; 2016-08-07 09:00)
PROC: 0DJD8ZZ Inspection of Lower Intestinal Tract, Via Natural or Artificial Opening Endoscopic (ICD-10-PCS; 2016-08-07 09:00)
DX: K31.7 Polyp of stomach and duodenum (principal); R12 Heartburn; K21.9 Gastro-esophageal reflux disease without esophagitis; K64.9 Unspecified hemorrhoids; I49.9 Cardiac arrhythmia, unspecified; F90.9 Attention-deficit hyperactivity disorder, unspecified type; G40.89 Other seizures; K57.92 Diverticulitis of intestine, part unspecified, without perforation or abscess without bleeding; K57.30 Diverticulosis of large intestine without perforation or abscess without bleeding; K57.32 Diverticulitis of large intestine without perforation or abscess without bleeding; E66.9 Obesity, unspecified; Z68.41 Body mass index [BMI] 40.0-44.9, adult; Z88.1 Allergy status to other antibiotic agents; Z88.5 Allergy status to narcotic agent; Z88.8 Allergy status to other drugs, medicaments and biological substances; Z79.899 Other long term (current) drug therapy; Z79.2 Long term (current) use of antibiotics; Z79.891 Long term (current) use of opiate analgesic; Z88.7 Allergy status to serum and vaccine; Z98.890 Other specified postprocedural states; Z90.710 Acquired absence of both cervix and uterus; Z90.49 Acquired absence of other specified parts of digestive tract; Z90.89 Acquired absence of other organs; Z87.891 Personal history of nicotine dependence
CPT/HCPCS: 88305